=== PATIENT | male | born 2000 | race Two or more races ===

== ENCOUNTER 2022-10-25 08:59 | Emergency (ER) | payer BC ==
[~2022-10-25] VITALS: Ht 180.3 cm; Wt 72.6 kg
[~2022-10-25 08:59] MED LIST: CEPH500C PO; IBUP-1453 PO; MUPI2OIN2 EX
[2022-10-25 09:23] VITALS: BP 121/70
== END 2022-10-25 09:28 | disposition home or self-care (01) ==
LOC: ER 08:59
DX: S91.312D Laceration without foreign body, left foot, subsequent encounter (principal); Z79.899 Other long term (current) drug therapy; X58.XXXD Exposure to other specified factors, subsequent encounter